=== PATIENT | female | born 1935 | race Caucasian/White ===

== ENCOUNTER 2018-02-24 13:06 | Inpatient (IN) | payer MEDICARE, OTHER ==
[~2018-02-24] VITALS: Ht 172.7 cm; Wt 68.9 kg
[~2018-02-24 13:06] MED LIST: ACID CONTROL20 MG PO; ADULT LOW DOSE81 MG PO; ALDACTONE25 MG PO; ATENOLOL 25 MG25 M1 PO; AZITHROMYCIN 2250 MG PO; BUSPIRONE HCL5 MG PO; CELEXA20 MG PO; CIPRO250 M1 PO; COLACE100 MG PO; COUMADIN 4 MG TA4 M1 PO; FLEXERIL PO; ICAPS TABLET1 EACH PO; IRON325; KEFLEX250 MG PO; KRILL OIL500 MG PO; LACTAID EXT4500 UNIT PO; LISINOPRIL20 MG PO; LUTEIN6 MG PO; MACROBID 100 M100 M2 PO; MEDROLDOSEPACK PO; METFORMIN HCL500 MG PO; NORCO 5-325 TA1 EACH PO; PROVENTIL IH; SINGULAIR 10 MG10 M1 PO; SPIRONOLACTONE25 M1 GT; VALIUM5 MG PO; VERAMYST10 GM NS; VITAMIN D1000 UNI1 PO; ZETIA10 MG
[2018-02-24 13:17] VITALS: BP 150/80
[2018-02-24] MEDS ORDERED: ICAPS TABLET1 EACH PO (13:23)
[2018-02-24] MEDS ORDERED: FISH OIL 1,001000 M2 PO (13:23)
[2018-02-24 13:33] LABS: URINE BILIRUBIN 2+ (Negative); URINE BLOOD NEGATIVE (Negative); URINE CLARITY CLEAR; URINE COLOR YELLOW; URINE GLUCOSE-RANDOM NEGATIVE (Negative); URINE KETONES TRACE (Negative); URINE LEUKOCYTES-REFLEX 1+ (Negative); URINE NITRITE-REFLEX NEGATIVE (Negative); URINE PROTEIN TRACE (Negative); URINE SPECIFIC GRAVITY 1.025 (1.005-1.030)
[2018-02-24 13:35] LABS: ICTOTEST (BILI CONFIRMATORY) Negative (Negative)
[2018-02-24 13:40] LABS: HEMATOCRIT 46.4 % (37.0-47.0); HEMOGLOBIN 15.7 gm/dL (12.0-15.0); MCH 33.8 pg (26.0-34.0); MCHC 33.9 g/dL (28.0-37.0); MCV 99.5 fL (80.0-100.0); MPV 8.4 fl. (7.2-11.1); NUCLEATED RBCS 0 /100WBC; PLATELET COUNT* 164 thou/uL (150-400); RBC 4.66 mil/uL (4.20-5.00); RDW-CV 12.7 % (10.5-14.5); WBC 10.5 thou/uL (4.0-11.0)
[2018-02-24 13:44] LABS: SQUAMOUS 0-3 Few /LPF (0-3)
[2018-02-24 13:45] LABS: BACTERIA-REFLEX None Seen /HPF (None Seen); CRYSTALS None Seen /LPF (None Seen); HYALINE CASTS 0-3 Few /LPF (None Seen); MUCUS None Seen strn/LPF (None Seen); URINE RBC 3-10 Few /HPF (0-2); URINE WBC-REFLEX 0-5 Rare /HPF (0-5)
[2018-02-24 13:51] LABS: ANION GAP 13 mmol/L (7-16); BUN 16 mg/dL (7-18); CALCIUM 9.7 mg/dL (8.5-10.1); CHLORIDE 100 mmol/L (98-107); CO2 26 mmol/L (21-32); CREATININE 1.3 mg/dL (0.6-1.3); GLUCOSE 156 mg/dL (70-99); POTASSIUM 4.6 mmol/L (3.5-5.1); SODIUM 139 mmol/L (136-145)
[2018-02-24 13:55] LABS: ALBUMIN 3.7 g/dL (3.4-5.0); ALKALINE PHOSPHATASE 65 U/L (46-116); LIPASE 316 U/L (73-393); SGOT 75 U/L (15-37); SGPT 42 U/L (30-65); TOTAL BILIRUBIN 1.7 mg/dL (<0.1-1.0); TOTAL PROTEIN 7.9 g/dL (6.4-8.2); TROPONIN-I LEVEL <0.06 ng/mL (<0.06)
[2018-02-24 14:15] LABS: ABSOLUTE LYMPHOCYTES 0.8 thou/uL (0.8-5.3); ABSOLUTE MONOCYTES 0.5 thou/uL (0.0-1.2); ABSOLUTE NEUTROPHILS 9.1 thou/uL (1.6-8.1); PLATELET ESTIMATE ADEQUATE
--- NOTE | 2018-02-24 14:33 | NUR ---
PT RETURNED FROM CAT SCAN, REQUESTING PAIN MEDICATION.
--- NOTE | 2018-02-24 15:49 | NUR ---
PT BROUGHT ICE WATER PER REQUEST. DR. FERRER CONSULTING WITH PT.
[2018-02-24 17:21] VITALS: BP 146/70
[2018-02-24 17:35] VITALS: BP 148/86
--- NOTE | 2018-02-24 18:44 | NUR ---
ASSUMED CARE OF PATIENT AFTER TRANSFER FROM ED AT 1745. ALERT AND ORIENTED X4. ADMISSION HISTORY AND ASSESSMENT COMPLETED AND CHARTED. VSS ON ROOM AIR. FLUIDS INFUSING ORDERED. PATIENT ON REGULAR DIET. NO COMPLAINTS OF NAUSEA, PAIN OR SOA AT THIS TIME. PATIENT IS UP WITH SBA AND USES WALKER. CALL LIGHT IS WITHIN REACH. NURSING WILL CONTINUE TO MONITOR.
[2018-02-24 23:42] VITALS: BP 140/80
--- NOTE | 2018-02-25 06:02 | NUR ---
ASSESSMENT COMPLETE. PT SLEPT THROUGH THE NIGHT WITHOUT ANY CONCERNS. PT DENIES PAIN AND N/V. PT IS ON ROOM AIR WITH [place]DEQA[place] SATS, VITALS STABLE. PT IS FALL RISK, BED ALARM ON. PT UP STANDBY ASSIST WITH WALKER. PT HAS SCD'S ON. IV FLUIDS INFUSING. PT GIVEN IV ABX ORDERED. PT TURNS SELF IN BED DURING THE NIGHT. SEE ASSESSMENT AND VITALS FOR OTHER DETAILS. CALL LIGHT WITHIN REACH, WILL CONTINUE PLAN OF CARE
[2018-02-25 08:30] VITALS: BP 117/65
[2018-02-25 10:59] LABS: CALCIUM 8.2 mg/dL (8.5-10.1); CREATININE 1.3 mg/dL (0.6-1.3); MAGNESIUM 1.7 mg/dL (1.8-2.4); POTASSIUM 3.7 mmol/L (3.5-5.1)
[2018-02-25 16:00] VITALS: BP 132/78
--- NOTE | 2018-02-25 16:24 | NUR ---
SPOKE WITH PT.,WHO WAS ALERT AND ORIENTED. SHE SAID SHE LIVES WITH HER . HE IS VERY SUPPORTIVE. SHE HAS MACULAR DEGENERATION AND CANNOT SEE VERY MUCH. THEY HAVE A CLEANING LADY THAT CLEANS THE UPSTAIRS OF THEIR HOME EVERY COUPLE OF WEEKS AND SHE AND CLEAN THE FAMILY ROOM DOWNSTAIRS. DRIVES. SON BOUGHT THEM A YEARS WORTH OF PRECOOKED MEALS THAT SHE JUST HAS TO PUT IN OVEN OR MICROWAVE. 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 SHE WENT TO A VISUALLY IMPAIRED PROGRAM CALLED [employer] AT ONE TIME AND THEN A LADY CAME TO THEIR HOME TO SEE WHAT SHE COULD HELP THEM WITH. HER HAS MADE A DIAGRAM THAT IS ENLARGED FOR THE WASHER/DRYER KNOBS, COLORED THE TV CHANNELS ON THE REMOTE WHITE AND MADE OTHER CHANGES THAT THE WOMAN RECOMMENDED. SHE SAID SHE COULD SEE THE NURSE BUTTON IF SHE LOOKS AT IT REAL CLOSE. SHE SAID SHE SHOULD NOT HAVE ANY DISCHARGE NEEDS. CM WILL FOLLOW.
--- NOTE | 2018-02-25 16:30 | EKG ---
[place] [address] ELECTROCARDIOGRAM REPORT Name: SHAKA FLEMING Room: [address] ADM IN M.R.#: [id number] Admission: 02/24/18 Attend Phys: Jimbo Buckner Discharge: Date of : 39 Report #: [id number] THIS REPORT FOR: //name// [facility] ED Test Date: 2018-02-24 Test Time: 13:56:35 Pat Name: SHAKA FLEMING Department: Room: [facility] Gender: F Associate Chemist: Andrés NICK : 1935 Requested By: Cee Palm Order Number: [id number] MD: Jose Daniel Eduardo Measurements Intervals [place] Rate: 91 P: 67 ID: 151 QRS: 14 QRSD: 92 T: 37 QT: 409 QTc: 504 Interpretive Statements Sinus rhythm Supraventricular bigeminy Inferior infarct, old Compared to ECG 11/25/2014 14:27:50 Atrial premature complex(es) now present Prolonged QT interval now present Sinus tachycardia no longer present Myocardial infarct finding still present Electronically Signed On 02-25-2018 16:29:57 CDT by Jose Daniel Eduardo [email or web address] <ELECTRONICALLY SIGNED> By: Jose Daniel Eduardo MD, [facility] 02/25/18 1629 1356 1356 Jose Daniel Eduardo MD, [facility] /EPI
--- NOTE | 2018-02-25 17:17 | NUR ---
ASSUMED CARE OF PATIENT AFTER MORNIGN REPORT. ALERT AND ORIENTED X4. ASSESSMENT COMPLETED AND CHARTED. VSS ON ROOM AIR. PATIENT HAD HAD NO COMPLAINTS OF NAUSEA, PAIN OR SOA THIS SHIFT. FLUIDS AND ANTIBIOTICS INFUSED ORDERED. PATIENT REMAINS ON CLEAR LIQUID DIET. RESTING COMFORTABLY IN BED AT THIS TIME. HOURLY ROUNDS MAINTAINED, CALL LIGHT IS WITHIN REACH AND NURSING WILL CONTINUE TO MONITOR.
[2018-02-25 20:00] VITALS: BP 139/61
[2018-02-26] VITALS: BP 134/62
[2018-02-26 04:00] VITALS: BP 137/60
[2018-02-26 04:30] LABS: ABSOLUTE EOSINOPHILS 0.2 thou/uL (0.0-0.7); ABSOLUTE LYMPHOCYTES 1.1 thou/uL (0.8-5.3); ABSOLUTE MONOCYTES 0.8 thou/uL (0.0-1.2); ABSOLUTE NEUTROPHILS 5.9 thou/uL (1.6-8.1); BASOPHILS 0.3 %; EOSINOPHILS 2.6 %; HEMATOCRIT 38.6 % (37.0-47.0); LYMPHOCYTES 13.6 %; MCH 33.6 pg (26.0-34.0); MCHC 33.6 g/dL (28.0-37.0); MONOCYTES 10.1 %; MPV 8.8 fl. (7.2-11.1); NUCLEATED RBCS 0 /100WBC; PLATELET COUNT* 114 thou/uL (150-400); POLYS 73.4 %; RBC 3.86 mil/uL (4.20-5.00); WBC 8.1 thou/uL (4.0-11.0)
[2018-02-26 04:43] LABS: ALBUMIN 2.4 g/dL (3.4-5.0); CREATININE 0.9 mg/dL (0.6-1.3); POTASSIUM 3.6 mmol/L (3.5-5.1); TOTAL BILIRUBIN 1.5 mg/dL (<0.1-1.0); TOTAL PROTEIN 5.8 g/dL (6.4-8.2)
--- NOTE | 2018-02-26 04:52 | NUR ---
PATIENT REMAINS ALERT AND ORIENTED X4 THROUGHOUT SHIFT. VITAL SIGNS STABLE ON ROOM AIR. TRANSFERS WITH STANDBY ASSIST WITH WALKER AND GAITBELT TO THE RESTROOM. DENIES PAIN. DENIES NAUSEA AND OR VOMITTING. IV PATENT IN THE LEFT AC INFUSING NS AT 100 ML/HR. PATIENT HAS BEEN UP FREQUENTLY THROUGHOUT THE NIGHT WITH LOOSE STOOLS. STOOL SAMPLE WAS SENT PER ORDER. PATIENT HAS BEEN RESTLESS. ISOLATION PRECAUTIONS REMAIN IN PLACE. FALL PRECAUTIONS IN PLACE. BED IN LOW POSITION, BED ALARM ON, CALL LIGHT WITHIN REACH. NURSING GHANSHYAM CONTINUE TO MONITOR.
[2018-02-26 08:12] VITALS: BP 155/75
--- NOTE | 2018-02-26 09:54 | NUR ---
ASSUMED CARES OF PT AT 0700. PT IN BED, BED IN LOW LOCKED POSITION. FALL PRECAUTIONS IN PLACE, CALL BUTTON AND PERSONAL ITEMS IN PT REACH. SPOUSE AT BEDSIDE. PT A&O X4, HRRR PER AUSCULTATION, LCTAB, VSS ON RA, OCC. HYPERTENSIVE. AFEBRILE, PERRLA, SKIN INTACT, SCATTERED SCARS AND BRUISING. PT HAS HAD MULTIPLE RUNNY, LOOSE BM'S, ON CONTACT PRECAUTIONS PENDING C-DIFF CULTURE RESULTS. PT UP SBA WITH GB/WALKER. LEFT AC IV PATENT WITH FLUIDS INFUSING, NS/100 ML/HR. PT DENIES PAIN AT THIS TIME. PT PROGRESSING TOWARDS GOAL, WILL CONTINUE TO MONITOR PT STATUS. HOURLY ROUNDING TO CONTINUE.
[2018-02-26 15:51] VITALS: BP 148/74
--- NOTE | 2018-02-26 19:31 | NUR ---
REPORT TO HORTICULTURAL TECHNICAL OFFICER FOR CONTINUED CARES. PT REMAINS STABLE WITH SPOUSE AT BEDSIDE. C-DIFF TEST RETURNED NEGATIVE, CONTACT PRECAUTIONS D/C'D. PT DENIES PAIN THIS SHIFT. UP SBA/INDEPENDENT WITH WALKER TO BATHROOM. FLUIDS INFUSING, WELL TOLERATED, NO AVR. PT PROGRESSING TOWARDS GOAL. POSSIBLE TO D/C TOMORROW TO HOME. HOURLY ROUNDS COMPLETED. VSS ON RA.
[2018-02-26 20:30] VITALS: BP 146/77
--- NOTE | 2018-02-27 06:24 | NUR ---
PT SLEPT AT INTERVALS DURING THE NIGHT, UP TO BATHROOM ABOUT EVERY HOUR TO VOID, IV FLUIDS INFUSED, USED WALKER WITH SUPERVISION, PLEASANT, CALL LIGHT IN REACH, BED ALARM ON FOR SAFETY, WILL CONTINUE TO MONITOR
[2018-02-27 08:00] VITALS: BP 109/79
[2018-02-27 14:56] LABS: HEMATOCRIT 42.3 % (37.0-47.0); HEMOGLOBIN 14.3 gm/dL (12.0-15.0); MCH 33.9 pg (26.0-34.0); MCHC 33.7 g/dL (28.0-37.0); MCV 100.4 fL (80.0-100.0); MPV 8.7 fl. (7.2-11.1); RBC 4.22 mil/uL (4.20-5.00); RDW-CV 12.9 % (10.5-14.5); WBC 7.3 thou/uL (4.0-11.0)
[2018-02-27 15:00] LABS: CALCIUM 9.5 mg/dL (8.5-10.1); CREATININE 0.9 mg/dL (0.6-1.3); MAGNESIUM 1.6 mg/dL (1.8-2.4); POTASSIUM 3.8 mmol/L (3.5-5.1)
[2018-02-27 15:35] VITALS: BP 109/79
[2018-02-27] MEDS ORDERED: PROBIOTIC1 EAC1 PO (15:45)
[2018-02-27] MEDS ORDERED: AUGMENTIN 875-1 EACH PO (15:45)
[2018-02-27] MEDS ORDERED: MIRALAX17 GM PO (15:46)
[2018-02-27] MEDS ORDERED: MAG-OXIDE400 MG PO (15:59)
[2018-02-27 16:01] VITALS: BP 117/79
--- NOTE | 2018-02-27 16:50 | NUR ---
PATIENT DISCHARGED TO HOME. DISCHARGE PAPERS REVIEWED AND SIGNED. PRESCRIPTIONS AND INFORMATION SHEETS GIVEN. IV REMOVED. PATIENT DENIES ANY FURTHER NEEDS. PATIENT TAKEN BY WHEELCAHIR TO EXIT. LEFT WITH .
--- NOTE | 2018-03-11 11:08 | CON ---
[facility] [address] [place] [address] CONSULTATION Name: SHAKA FLEMING Room: [address] IN M.R.#: [id number] Admission: 02/24/18 Attend Phys: Jimbo Buckner Discharge: 02/27/18 Date of : 39 Report #: [id number] THIS REPORT FOR: //name// CC: APRIL Fairchild DATE OF SERVICE: 02/25/2018 REFERRING PHYSICIAN: April Martins M.D. REASON FOR CONSULTATION: Abdominal pain. IMPRESSION: 1. Acute left lower quadrant pain associated with nausea, vomiting and fever, with worsening constipation and abnormal CAT scan suggested most commonly colitis - suspect ischemic colitis versus less likely diverticulitis versus less likely other causes. 2. Chronic constipation with history of ischemic colitis noted in the past (2009). 3. 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 RECOMMENDATIONS: 1. We will have the patient advance her diet to low-residue diet. 2. Continue her IV antibiotics and convert to oral antibiotics for an additional 10-14 days upon discharge. 3. We will begin the patient on MiraLax either half or full scoop with 8 ounces of water daily or every other day to prevent recurrent constipation. 4. Proceed with full colonoscopy in 6-8 weeks to make sure things are good. I believe that she will be able to go home in the next couple 3 days. My partner, Dr. Kearney, will see the patient tomorrow and make further recommendations regarding the same. Since SHE IS ALLERGIC TO LEVAQUIN, I would recommend that she go home on some Augmentin 875 twice daily and have her take a probiotic while she is on the same. Align would be a good probiotic and it could be taken at the same time. HISTORY OF PRESENT ILLNESS: The patient is a very pleasant 82-year-old white female who was seen through the Emergency Room on 02/24/2018 with complaints of rather severe abdominal pain, nausea, vomiting and diarrhea. She denied complaints of any bleeding. She has had similar-type episodes in the past where she has had bouts of ischemic colitis that have been documented by endoscopic evaluation. She has also had some low-grade fevers as well and was not sure what was going on with the same. She has not been on any antibiotics recently nor had been exposed to anybody who had been ill. [place] [address] CONSULTATION Name: SHAKA FLEMING Room: [address] IN ..#: [id number] Admission: 02/24/18 Attend Phys: Jimbo Buckner Discharge: 02/27/18 Date of : 39 Report #: [id number] towards chronic constipation, but is not taking anything on a regular basis to help with the same. She was seen through the Emergency Room and underwent a full CT scan of the abdomen and pelvis which revealed diffuse thickening of the proximal mid sigmoid colon compatible with either colitis or diverticulitis. She is admitted to the hospital for further evaluation and treatment. ALLERGIES: TIMOLOL, ESOMEPRAZOLE, GABAPENTIN, LEVOFLOXACIN, LISINOPRIL, MINOCYCLINE AND VERAPAMIL. MEDICATIONS: At home include vitamins, Aldactone and fish oil. PAST MEDICAL AND SURGICAL HISTORY: Extensive, though she is not on any medications long-term for the same. She has history of multiple surgeries, including tonsillectomy, cholecystectomy, varicose vein surgery, Bartholin cyst removal, breast biopsies and lumpectomies and hysterectomy. She has had a history of ischemic colitis, as I mentioned above. She has had carotid endarterectomy, history of macular degeneration, diverticular disease and fatty liver with cirrhosis, which confirmed by biopsies. History of essential tremor, some peripheral neuropathy as well. SOCIAL HISTORY: The patient does not smoke. Occasionally drinks alcohol. FAMILY HISTORY: Negative. PHYSICAL EXAMINATION: GENERAL: A pleasant 82-year-old white female who is awake and alert. CARDIOPULMONARY EXAMINATION: Revealed a regular rate and rhythm. LUNGS: Clear. ABDOMEN: Soft. She was tender in the left lower quadrant. No rebound or guarding noted. LABORATORY DATA: Laboratory test revealed a white count 10.5, hemoglobin 15.7, platelet count of 164,000, MCV is 99.5 and RDW 12.7. Sodium 139, potassium 4.6, chloride 100, bicarbonate is 26, BUN is 16 and creatinine 1.3. Her GFR . DICTATION ENDS HERE. <ELECTRONICALLY SIGNED> By: Lukas Baker DO 03/11/18 1108 1658 [id number] Baker DO /nt
--- NOTE | 2018-03-11 11:08 | CON ---
[address] [address] CONSULTATION Name: SHAKA FLEMING Room: [address] IN M.R.#: [id number] Admission: 02/24/18 Attend Phys: Jimbo Buckner Discharge: 02/27/18 Date of : 39 Report #: [id number] THIS REPORT FOR: //name// CC: Leidy Fairchild DATE OF SERVICE: 02/25/2018 ADDENDUM LABORATORY DATA: Her laboratory tests from 02/24/2018 revealed sodium 139, potassium 4.6, chloride 100, bicarbonate is 26, her BUN is 16, creatinine 1.3 and her GFR is 39. Her total bilirubin is 1.7, alkaline phosphatase is 65, AST 75 and ALT 42. Her albumin is 3.7. Lipase . CT scan was reviewed and was abnormal, as I mentioned above. DISCUSSION: At the present time, the patient has some colitis. I suspect it is a bout of ischemic colitis, but cannot rule out the possibility of diverticulitis or something else. Proceed with low-residue diet, antibiotics and have her come back in the office to see how things are going in several weeks. At that time, we will get her set up for a colonoscopy as an outpatient. I have made this recommendation with the patient as well as and let the patient as well as her know and they are agreeable to the same. <ELECTRONICALLY SIGNED> By: Lukas Baker, 03/11/18 1108 1706 [id number] Baker DO /nt
== END 2018-02-27 16:50 | disposition home or self-care (01) | DRG 371 ==
LOC: M.ERS 13:06 → M.TBA-ER 15:42 → M.ORTHSURG 15:42
PROVIDERS: Family Medicine; Internal Medicine Gastroenterology; Physician Assistant; ADMIT Internal Medicine
DX: A04.9 Bacterial intestinal infection, unspecified (principal); K55.039 Acute (reversible) ischemia of large intestine, extent unspecified; K51.90 Ulcerative colitis, unspecified, without complications; R65.10 Systemic inflammatory response syndrome (SIRS) of non-infectious origin without acute organ dysfunction; E44.0 Moderate protein-calorie malnutrition; K55.1 Chronic vascular disorders of intestine; J44.9 Chronic obstructive pulmonary disease, unspecified; I10 Essential (primary) hypertension; H35.30 Unspecified macular degeneration; K57.90 Diverticulosis of intestine, part unspecified, without perforation or abscess without bleeding; K59.09 Other constipation; K74.60 Unspecified cirrhosis of liver; E83.42 Hypomagnesemia; G62.9 Polyneuropathy, unspecified; Z68.23 Body mass index [BMI] 23.0-23.9, adult; Z90.49 Acquired absence of other specified parts of digestive tract; Z87.891 Personal history of nicotine dependence; Z90.710 Acquired absence of both cervix and uterus; Z79.899 Other long term (current) drug therapy; Z88.1 Allergy status to other antibiotic agents; Z88.8 Allergy status to other drugs, medicaments and biological substances

== ENCOUNTER 2019-04-15 08:54 | Emergency (ER) | payer MEDICARE, OTHER ==
[~2019-04-15] VITALS: Ht 172.7 cm; Wt 63.5 kg
[~2019-04-15 08:54] MED LIST changes: +ALDACTONE100 MG PO; -ALDACTONE25 MG PO; +AUGMENTIN 875-1 EACH PO; +FISH OIL 1,001000 M2 PO; +MAG-OXIDE400 MG PO; +MIRALAX17 GM PO; +PROBIOTIC1 EAC1 PO
[2019-04-15] MEDS ORDERED: SYNTHROID25 MC1 PO (09:08)
[2019-04-15] MEDS ORDERED: NORCO 7.5-3251 EACH PO (10:01)
[2019-04-15] MEDS ORDERED: IBUPROFEN 800800 MG PO (10:01)
[2019-04-15] MEDS ORDERED: PERCOCET 5-3251 EACH PO (10:04)
[2019-04-15] MEDS ORDERED: NORCO 5-325 TA1 EAC1 PO (10:05)
[2019-04-15 10:20] VITALS: BP 130/85
== END 2019-04-15 10:20 | disposition home or self-care (01) ==
LOC: M.ERS 08:54
DX: S00.03XA Contusion of scalp, initial encounter (principal); S10.93XA Contusion of unspecified part of neck, initial encounter; M79.18 Myalgia, other site; H35.30 Unspecified macular degeneration; K76.0 Fatty (change of) liver, not elsewhere classified; I10 Essential (primary) hypertension; Z88.8 Allergy status to other drugs, medicaments and biological substances; Z88.1 Allergy status to other antibiotic agents; Z90.89 Acquired absence of other organs; Z90.49 Acquired absence of other specified parts of digestive tract; Z90.710 Acquired absence of both cervix and uterus; W18.39XA Other fall on same level, initial encounter; Y92.89 Other specified places as the place of occurrence of the external cause; Y93.89 Activity, other specified; Y99.8 Other external cause status

== ENCOUNTER → 2019-06-14 | Outpatient (CLI) | payer MEDICARE, OTHER ==
[~2019-06-14] MED LIST changes: +IBUPROFEN 800800 MG PO; +NORCO 5-325 TA1 EAC1 PO; +NORCO 7.5-3251 EACH PO; +PERCOCET 5-3251 EACH PO; +SYNTHROID25 MC1 PO
[2019-06-14 12:17] LABS: ALBUMIN 3.5 g/dL (3.4-5.0); CALCIUM 9.4 mg/dL (8.5-10.1); CREATININE 1.2 mg/dL (0.6-1.3); TOTAL BILIRUBIN 0.9 mg/dL (<0.1-1.0); TOTAL PROTEIN 7.7 g/dL (6.4-8.2)
[2019-06-14 21:05] LABS: COMPLEMENT-C4 27 mg/dL (14-44)
[2019-06-15 02:07] LABS: GLYCOHEMOGLOBIN (HGB A1C) 5.7 % (4.8-5.6)
[2019-06-15 07:08] LABS: HEPATITIS B SURFACE AG Negative (Negative)
[2019-06-16 12:09] LABS: URINE CREATININE (GM/24H) 520 mg/24 hr (800-1800)
[2019-06-16 16:06] LABS: GLOBULIN TOTAL 3.6 g/dL (2.2-3.9); M-SPIKE Not Observed g/dL (Not Observed)
[2019-06-16 18:08] LABS: URINE PROTEIN < 80 mg/24 hr (30-150); URINE PROTEIN (MG/DL) < 4.0 mg/dL (Not Estab.)
[2019-06-18 14:10] LABS: CREATININE CLEARANCE 29 mL/min (88-128)
== END ==
LOC: M.ULTRA 10:30 → M.LAB 10:40 → M.ULTRA 10:40
PROVIDERS: Nurse Practitioner Family
DX: N28.1 Cyst of kidney, acquired (principal)

== ENCOUNTER 2020-10-21 20:46 | Inpatient (IN) | payer MEDICARE, OTHER ==
[~2020-10-21] VITALS: Ht 172.7 cm; Wt 69.4 kg
[2020-10-21 21:00] VITALS: BP 166/84
[2020-10-21] MEDS ORDERED: SPIRONOLACTONE50 MG PO (21:22)
[2020-10-21] MEDS ORDERED: LEVO-T25 MCG PO (21:22)
[2020-10-21 21:27] LABS: ABSOLUTE LYMPHOCYTES 0.4 thou/uL (0.8-5.3); ABSOLUTE MONOCYTES 0.9 thou/uL (0.0-1.2); ABSOLUTE NEUTROPHILS 4.1 thou/uL (1.6-8.1); BASOPHILS 0.5 %; HEMATOCRIT 45.6 % (37.0-47.0); HEMOGLOBIN 15.5 gm/dL (12.0-15.0); LYMPHOCYTES 7.8 %; MCH 33.4 pg (26.0-34.0); MCHC 34.1 g/dL (28.0-37.0); MONOCYTES 16.1 %; MPV 7.9 fl. (7.2-11.1); NUCLEATED RBCS 0 /100WBC; PLATELET COUNT* 135 thou/uL (150-400); POLYS 75.6 %; RBC 4.66 mil/uL (4.20-5.00); RDW-CV 13.1 % (10.5-14.5); WBC 5.5 thou/uL (4.0-11.0)
[2020-10-21 21:38] LABS: CALCIUM 8.8 mg/dL (8.5-10.1); CREATININE 1.3 mg/dL (0.6-1.3); POTASSIUM 3.8 mmol/L (3.5-5.1)
[2020-10-21 21:49] LABS: ALBUMIN 3.3 g/dL (3.4-5.0); MAGNESIUM 1.7 mg/dL (1.8-2.4); TOTAL BILIRUBIN 0.7 mg/dL (<0.1-1.0); TOTAL PROTEIN 7.6 g/dL (6.4-8.2)
[2020-10-21 22:53] LABS: URINE BILIRUBIN NEGATIVE (Negative); URINE BLOOD NEGATIVE (Negative); URINE CLARITY CLEAR; URINE COLOR YELLOW; URINE GLUCOSE-RANDOM NEGATIVE (Negative); URINE KETONES NEGATIVE (Negative); URINE LEUKOCYTES-REFLEX TRACE (Negative); URINE NITRITE-REFLEX NEGATIVE (Negative); URINE PROTEIN NEGATIVE (Negative); URINE UROBILINOGEN 0.2 E.U./dl (0.2-1.0)
[2020-10-21 22:54] LABS: INFLUENZA A ANTIGEN Negative (Negative); INFLUENZA B ANTIGEN Negative (Negative)
[2020-10-21 23:02] LABS: SQUAMOUS 4-10 Moderate /LPF (0-3)
[2020-10-21 23:03] LABS: BACTERIA-REFLEX 1-9 Few /HPF (None Seen); CASTS None Seen /LPF (None Seen); CRYSTALS None Seen /LPF (None Seen); URINE RBC None Seen /HPF (0-2); URINE WBC-REFLEX 6-15 Few /HPF (0-5)
[2020-10-21 23:54] VITALS: BP 163/72
[2020-10-22 00:15] VITALS: BP 162/85
--- NOTE | 2020-10-22 00:15 | NUR ---
PT ADMITTED TO FLOOR PER CART ACCOMPANIED BY ER STAFF WITH BELONGINGS. ORIENTED TO ROOM AND CALL LITE. HISTORY OBTAINED AND ASSESSMENT PERFORMED. PT CURRENTLY NAUSEATED AND ACHED IN RIBS AND BACK FROM COUGHING SHE STATES. AOX4. SHAKEY WHEN TRANSFERRING FROM BED TO [facility] DIZZINESS. INSTRUCTED IN FALL PRECAUTIONS, BED ALARM ON FOR SAFETY. PT VERBALIZES UNDERSTANDING. WILL GIVE MEDS ORDERED. IVF PLACED ON PUMP FOR INFUSION. TELE SR.
[2020-10-22 00:39] LABS: INR 1.1; PROTIME 10.7 Seconds (9.20-11.50)
[2020-10-22 04:45] VITALS: BP 122/63
--- NOTE | 2020-10-22 05:17 | NUR ---
NEW ADMISSION THIS SHIFT. ZOFRAN GIVEN AND PT MADE COMFORTABLE IN BED AND ABLE TO REST SOME. DEXAMETHASONE GIVEN ORDERED. LAC IVF INFUSING PER PUMP. UP WITH ASSIST TO BSC TO VOID, SHAKEY. BED ALARM ON FOR SAFETY, CALL LITE IN EASY REACH. ABLE TO USE CALL LITE AND MAKE NEEDS KNOWN.REMAINS ON ENHANCED PRECATION ISOLATION ON COVID UNIT.
[2020-10-22 08:30] VITALS: BP 97/54
--- NOTE | 2020-10-22 10:26 | EKG ---
[place] [address] ELECTROCARDIOGRAM REPORT Name: SHAKA FLEMING Room: [address] IN [facility]#: [id number] Admission: 10/21/20 Attend Phys: Mary Astorga, Discharge: 10/24/20 Date of : 39 Date of Service: 10/21/202102 Report #: [id number] THIS REPORT FOR: //name// [facility] ED Test Date: 2020-10-21 Test Time: 21:03:56 Pat Name: SHAKA CORDOVA Department: Room: 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: [facility] : 1935 Requested By: Anjana Casillas Order Number: [id number] MD: Kamaljit Jaimes Measurements Intervals [place] Rate: 81 P: 23 [place]: 136 QRS: 3 QRSD: 88 T: 49 QT: 368 QTc: 428 Interpretive Statements Sinus rhythm Minimal ST elevation, inferior leads No previous ECG available for comparison Electronically Signed On 10-22-2020 10:26:25 MATERIAL YARD CLERK by Kamaljit Jaimes [email or web address] <ELECTRONICALLY SIGNED> By: Kamaljit Jaimes MD, FACC 10/22/20 1026 02 02 Kamaljit Jaimes MD, [facility] /EPI
[2020-10-22 10:36] LABS: HEMATOCRIT 42.3 % (37.0-47.0); HEMOGLOBIN 14.3 gm/dL (12.0-15.0); MCH 33.1 pg (26.0-34.0); MCHC 33.9 g/dL (28.0-37.0); MCV 97.7 fL (80.0-100.0); NUCLEATED RBCS 0 /100WBC; PLATELET COUNT* 127 thou/uL (150-400); RBC 4.33 mil/uL (4.20-5.00); RDW-CV 12.8 % (10.5-14.5); WBC 3.2 thou/uL (4.0-11.0)
[2020-10-22 10:53] LABS: ALBUMIN 2.6 g/dL (3.4-5.0); CALCIUM 8.2 mg/dL (8.5-10.1); CREATININE 1.1 mg/dL (0.6-1.3); POTASSIUM 3.6 mmol/L (3.5-5.1); TOTAL BILIRUBIN 0.4 mg/dL (<0.1-1.0); TOTAL PROTEIN 6.5 g/dL (6.4-8.2)
[2020-10-22 11:20] LABS: ABSOLUTE LYMPHOCYTES 0.2 thou/uL (0.8-5.3); ABSOLUTE MONOCYTES 0.1 thou/uL (0.0-1.2); ABSOLUTE NEUTROPHILS 2.9 thou/uL (1.6-8.1); PLATELET ESTIMATE DECREASED
[2020-10-22 12:04] VITALS: BP 95/54
--- NOTE | 2020-10-22 16:45 | NUR ---
SPOKE WITH SON THOMAS ABOUT MOTHERS CONDITION, ANSWERED QUESTIONS AND CONCERNS.
--- NOTE | 2020-10-22 16:50 | NUR ---
SPOKE WITH SON,THOMAS, ON [phone]. HE SAID HIS MOM LIVES IN A INDEPENDENT APT[place]AT THE [facility]. SHE HAS MACULAR DEGENERATION BUT MANAGES OK. SHE TAKES HER OWN MEDS,MICROWAVES FOOD,CAN WALK TO THE DINING ROOM IF IT IS OPEN WITH HER WALKER,OTHERWISE THEY DELIVER MEALS TO HER. NO OTHER DME AND NO HX OF HH OR SNF. THEY MAY BE INTERESTED IN HOME HEALTH AT DISCHARGE.WILL FOLLOW.
--- NOTE | 2020-10-22 18:06 | NUR ---
PT LYING IN BED MOST OF THE DAY, AO X4 ON ROOM AIR. SHE IS VERY WEAK AND IS ASSIST X1 TO BSC. SHE HAS VOIDED A COUPLE TIMES AND IS EATING SMALL MEALS WITH NO NAUSE/VOMITING. PT IS GETTING FLUIDS PER ORDER AND TAKING ADEQUATE PO FLUID INTAKE. I SPOKE WITH HER SON IN REGARDS TO HER CONDITION AND CARE PLAN.
[2020-10-22 20:58] VITALS: BP 109/60
[2020-10-23 00:07] VITALS: BP 103/47
[2020-10-23 04:55] VITALS: BP 107/48
--- NOTE | 2020-10-23 06:59 | NUR ---
PATIENT WAS UP MOST OF THE NIGHT. PATIENT REMAINS ON ROOM AIR BUT STILL COMPLAINING OF SHORTNESS OF BREATHE. WILL CONTINUE TO MONITOR.
[2020-10-23 07:34] LABS: HEMATOCRIT 38.5 % (37.0-47.0); HEMOGLOBIN 13.1 gm/dL (12.0-15.0); MCH 32.8 pg (26.0-34.0); MCV 96.4 fL (80.0-100.0); MPV 8.3 fl. (7.2-11.1); NUCLEATED RBCS 0 /100WBC; PLATELET COUNT* 158 thou/uL (150-400); RBC 3.99 mil/uL (4.20-5.00); RDW-CV 12.8 % (10.5-14.5)
[2020-10-23 07:36] LABS: WBC 12.3 thou/uL (4.0-11.0)
[2020-10-23 07:42] LABS: CALCIUM 8.1 mg/dL (8.5-10.1); POTASSIUM 3.1 mmol/L (3.5-5.1)
[2020-10-23 08:28] LABS: ABSOLUTE LYMPHOCYTES 0.5 thou/uL (0.8-5.3); ABSOLUTE NEUTROPHILS 9.8 thou/uL (1.6-8.1); ANISOCYTOSIS 1+; PLATELET ESTIMATE ADEQUATE; POIKILOCYTOSIS 1+; POLYCHROMASIA Occasional
[2020-10-23 10:00] VITALS: BP 110/47
--- NOTE | 2020-10-23 14:37 | NUR ---
PT.MAY BE READY FOR DISCHARGE TOMORROW,BACK TO THE [facility]. PT/OT ORDERED FOR TODAY. HER SON WOULD LIKE FOR HER TO HAVE HOME HEALTH AT DISCHARGE. HE WOULD LIKE [facility]. [facility] REFERRAL TO [phone].
[2020-10-23 16:00] VITALS: BP 116/56
--- NOTE | 2020-10-23 17:03 | NUR ---
[facility] CALLED AND SAID THEY COULD ACCEPT PT.MEDICALLY BUT COULD NOT SEE HER UNTIL NEXT THURSDAY, OCT.29. TOLD HIM I WOULD NEED TO FIND A DIFFERENT HH CO. THAT WOULD BE TOO LONG TO WAIT. HE UNDERSTOOD. WILL DISCUSS WITH SON IN AM.
[2020-10-23 21:27] VITALS: BP 114/63
[2020-10-24 04:00] VITALS: BP 125/66
[2020-10-24 08:00] VITALS: BP 143/68
[2020-10-24 08:05] LABS: ABSOLUTE LYMPHOCYTES 0.3 thou/uL (0.8-5.3); ABSOLUTE MONOCYTES 0.9 thou/uL (0.0-1.2); ABSOLUTE NEUTROPHILS 13.1 thou/uL (1.6-8.1); BASOPHILS 0.1 %; HEMATOCRIT 40.7 % (37.0-47.0); HEMOGLOBIN 13.6 gm/dL (12.0-15.0); LYMPHOCYTES 2.1 %; MCH 32.5 pg (26.0-34.0); MCHC 33.4 g/dL (28.0-37.0); MCV 97.2 fL (80.0-100.0); MONOCYTES 6.3 %; MPV 8.4 fl. (7.2-11.1); NUCLEATED RBCS 0 /100WBC; PLATELET COUNT* 192 thou/uL (150-400); POLYS 91.5 %; RBC 4.18 mil/uL (4.20-5.00); WBC 14.3 thou/uL (4.0-11.0)
[2020-10-24 08:26] LABS: ALBUMIN 2.4 g/dL (3.4-5.0); CALCIUM 8.4 mg/dL (8.5-10.1); CREATININE 0.9 mg/dL (0.6-1.3); POTASSIUM 3.7 mmol/L (3.5-5.1); TOTAL BILIRUBIN 0.3 mg/dL (<0.1-1.0); TOTAL PROTEIN 6.3 g/dL (6.4-8.2)
[2020-10-24] MEDS ORDERED: VIBRAMYCIN 100100 M2 PO (08:38)
[2020-10-24] MEDS ORDERED: PROTONIX40 M2 PO (08:41)
[2020-10-24] MEDS ORDERED: DEXAMETHASONE1 MG PO (08:41)
[2020-10-24 12:00] VITALS: BP 125/71
[2020-10-24 14:37] VITALS: BP 125/71
[2020-10-24 14:52] VITALS: BP 125/71
--- NOTE | 2020-10-24 16:20 | NUR ---
SPOKE WITH [facility]. SHE SAID TO FAX OVER INFORMATION AND ORDERS TO THEM AND THEY WILL CALL IF THEY CAN ACCEPT PT. FAXED TO [phone]. [facility] CALLED BACK AND SAID THEY CAN ACCEPT PT.AND WILL START THIS WEEKEND DUE TO THE HOLIDAY.
--- NOTE | 2020-10-24 16:40 | NUR ---
PATIENT DISCHARGED TO HOME WITH HOME HEALTH. DISCHARGE PAPERS REVIEWED AND SIGNED. PRESCRIPTIONS TRANSMITTED TO PHARMACY AND INFORMATION SHEETS GIVEN. IV REMOVED. PATIENT ASSISTED WITH PACKING BELONGINGS AND GETTING DRESSED. PATIENT DENIES ANY FURTHER NEEDS. PATIENT TAKEN BY WHEELCHAIR TO EXIT. LEFT WITH SON.
[2020-10-24 16:44] VITALS: BP 125/71
== END 2020-10-24 16:40 | disposition home health service (06) | DRG 177 ==
LOC: M.ERS 20:46 → M.ORTHSURG 23:18 → M.TBA-ER 23:18 → M.ORTHSURG 23:18
PROVIDERS: Emergency Medicine; Internal Medicine; ADMIT Internal Medicine; ATTEND Internal Medicine
DX: U07.1 COVID-19 (principal); J12.89 Other viral pneumonia; R65.10 Systemic inflammatory response syndrome (SIRS) of non-infectious origin without acute organ dysfunction; E87.1 Hypo-osmolality and hyponatremia; N39.0 Urinary tract infection, site not specified; E03.9 Hypothyroidism, unspecified; I10 Essential (primary) hypertension; Z79.899 Other long term (current) drug therapy; Z90.49 Acquired absence of other specified parts of digestive tract; Z72.89 Other problems related to lifestyle

== ENCOUNTER 2021-04-25 11:08 | Inpatient (IN) | payer MEDICARE, OTHER ==
[2021-04-25] VITALS (39 sets, daily range): BP systolic 115–154; BP diastolic 55–111
[~2021-04-25] VITALS: Ht 172.7 cm; Wt 69.4 kg
--- NOTE | ~2021-04-25 | D ---
[address] [address] DISCHARGE SUMMARY Name: SHAKA FLEMING Christie Room: [address] IN ..#: [id number] Admission: 04/25/21 Attend Phys: Tj Forde MD Discharge: Date of : 39 Report #: [id number] THIS REPORT FOR: cc: Sam Hart MD, Bruce D. MD Liston, Michael J. MD [facility] ~ DOC #: [id number] cc: MD Tj Abreu MD DATE OF DISCHARGE: 04/27/2021 DISCHARGE DIAGNOSES: 1. Acute anterior ST elevation myocardial infarction. 2. Hypertension. 3. Dyslipidemia. 4. Acute on chronic combined heart failure. PROCEDURES DURING HOSPITALIZATION: 1. Coronary angiography. 2. Left heart catheterization. 3. Left ventriculography. 4. ICU monitoring. 5. Percutaneous coronary intervention to the mid left anterior descending coronary artery with a drug-eluting stent placement. HOSPITAL COURSE: The patient was admitted through the Emergency Room emergently on 04/25/2021, with acute anterolateral ST elevation myocardial infarction. On catheterization, she was found to have a 100% vessel occlusion in the mid left anterior descending coronary artery with associated thrombus and calcification. The patient underwent emergent percutaneous coronary intervention with drug-eluting stent placement with minimal 10% residual stenosis at completion of the procedure. The patient tolerated the procedure well and without complication. Left ventricular end diastolic pressure at the time of procedure was 25 mmHg. Left ventriculography showed an EF of approximately 35% with distal anterior wall and apical akinesis. The patient was recovered in the Intensive Care Unit uneventfully. The patient's medications were adjusted for heart failure and acute myocardial infarction with percutaneous coronary intervention. The patient was gradually increased in her activities which she did well with. The patient is being discharged uneventfully. DISCHARGE MEDICATIONS: Will include Effient 10 mg p.o. daily, atorvastatin 40 mg at bedtime, metoprolol succinate 50 mg p.o. daily, Cozaar 25 mg p.o. daily, aspirin 81 mg p.o. daily, spironolactone 50 mg p.o. daily, levothyroxine 25 [place] [address] DISCHARGE SUMMARY Name: SHAKA FLEMING Room: [address]#: [id number] Admission: 04/25/21 Attend Phys: Tj Forde MD Discharge: Date of : 39 Report #: [id number]. DISPOSITION: The patient is to follow up with Cardiology in 1 week. Tj Forde MD MJL/ESTRELLITA/MELISSAT By: [address] [facility] Hospitalchristie Forde MD, FACC /nt
[~2021-04-25 11:08] MED LIST changes: +DEXAMETHASONE1 MG PO; +LEVO-T25 MCG PO; +PROTONIX40 M2 PO; +SPIRONOLACTONE50 MG PO; +VIBRAMYCIN 100100 M2 PO
--- NOTE | 2021-04-25 11:30 | NUR ---
TO COFFERDAM CONSTRUCTION SUPERVISOR WITH CATH TEAM. 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
--- NOTE | 2021-04-25 11:33 | NUR ---
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 FAVIOLA VOICES UNDERSTANDING OF THIS.
[2021-04-25 11:34] LABS: ABSOLUTE BASOPHILS 0.1 thou/uL (0.0-0.2); ABSOLUTE EOSINOPHILS 0.1 thou/uL (0.0-0.7); ABSOLUTE LYMPHOCYTES 2.3 thou/uL (0.8-5.3); ABSOLUTE MONOCYTES 1.2 thou/uL (0.0-1.2); ABSOLUTE NEUTROPHILS 7.2 thou/uL (1.6-8.1); BASOPHILS 0.8 %; EOSINOPHILS 1.2 %; HEMATOCRIT 44.2 % (37.0-47.0); LYMPHOCYTES 20.8 %; MCH 30.2 pg (26.0-34.0); MCHC 33.9 g/dL (28.0-37.0); MCV 89.1 fL (80.0-100.0); MPV 7.8 fl. (7.2-11.1); NUCLEATED RBCS 0 /100WBC; PLATELET COUNT* 227 thou/uL (150-400); POLYS 66.2 %; RBC 4.96 mil/uL (4.20-5.00); WBC 10.8 thou/uL (4.0-11.0)
[2021-04-25 11:43] LABS: CALCIUM 9.5 mg/dL (8.5-10.1); CREATININE 1.2 mg/dL (0.6-1.3); POTASSIUM 4.3 mmol/L (3.5-5.1)
[2021-04-25 11:47] LABS: APTT 22.3 Seconds (25.0-31.3); PROTIME 10.6 Seconds (9.20-11.50)
[2021-04-25 11:54] LABS: ALBUMIN 3.5 g/dL (3.4-5.0); MAGNESIUM 1.8 mg/dL (1.8-2.4); TOTAL BILIRUBIN 0.9 mg/dL (<0.1-1.0); TOTAL PROTEIN 7.5 g/dL (6.4-8.2)
[2021-04-25 13:02] LABS: CHOLESTEROL 230 mg/dL (<200); HDL CHOLESTEROL 70 mg/dL (>40); LDL CHOLESTEROL 124 mg/dL (<100); TC:HDL 3.3 Ratio (Not establshd); TRIGLYCERIDE 184 mg/dL (<150); VLDL 37 mg/dL (<40)
[2021-04-25 13:03] LABS: SERUM ASSESSMENT Clear
--- NOTE | 2021-04-25 13:59 | CARD ---
[address] [address] CARDIAC CATH REPORT Name: NICKOIVELISSEGRETTASHAKA L Room: [address] IN [facility]#: [id number] Admission: 04/25/21 Attend Phys: Tj Forde MD Discharge: Date of : 39 Report #: [id number] THIS REPORT FOR: cc: Sam Hart MD, Bruce D. MD Holkins, John M. MD [facility] ~ APPROVED REPORT Study performed: 04/25/2021 11:25:50 Patient Details Patient Status: ED Room #: The patient is a 85 year-old female Event Personnel Elle Cid RTR ScrubSean Jillian RN RN, Jose Daniel Eduardo Clinical Biostatistics Director, Duane Mix RTR Monitor, Tj Forde Longwall Machine Operator Helper Procedures Performed Left Heart Cath w/or w/o Coronaries [id number] [facility] Revasc AMI Total/Sub Single LAD C9606 AMIREVSING Hemostasis w/ Angioseal Indication STEMI (>0 to less than or equal to 6 hours) Risk Factors Hypercholesterolemia, Hypertension Admission/Lab Medications/Medications given during procedure Lidocaine Subcut 20 ml, Angiomax IV 10.5 ml, Angiomax IV 24.32 ml per hr, Effient PO 60 mg Procedure Narrative The patient was brought emergently to the Cardiac Catheterization Laboratory and was prepped and draped in a sterile manner. The right femoral was infiltrated with 2% Lidocaine subcutaneous anesthesia. A [place] 6 FR sheath was inserted into the right femoral artery. Coronary angiography was performed using coronary diagnostic catheters. The right coronary system was accessed and visualized with a Diagnostic JR4 6Fr catheter. The left coronary system was accessed and visualized with a Diagnostic JL4 6Fr catheter[place] [address] CARDIAC CATH REPORT Name: SHAKA FLEMING Room: [address]#: [id number] Admission: 04/25/21 Attend Phys: Tj Forde MD Discharge: Date of : 39 Report #: [id number] was accessed and visualized with a Diagnostic Pigtail 6Fr catheter. Left ventricular/Aortic Valve gradient assessed via catheter pullback. Left ventriculogram was performed in CUBAN projection. Pre-demployment femoral angiogram was performed . Closure device was deployed with a 6 Fr Angioseal. The patient tolerated the procedure well and there were no complications associated with the procedure. There was no hematoma. Intraoperative Conscious Sedation Sedation start time: 1137 Case end Time: 1231 Fluoro Time: 17.1 minutes Dose: DAP 251360 cGycm2 1782.53 mGy Contrast Type and Amount: Visipaque 290 ml Diagnostic Cath Left Main 0% narrowing LAD 40% proximal narrowing with 100% mid vessel occlusion and prominent local thrombus at the site with MARY ANN 0 flow to the distal LAD Circumflex 40% tubular proximal narrowing Right Coronary Moderate size dominant vessel with 50% proximal mid and distal narrowings Left Ventriculography The left ventricle is normal in size with Decreased contractility. The left ventricular ejection fraction is estimated to be 35%. Left ventricular wall motion abnormalities are present. There is no mitral insufficiency. Apical akinesis is noted Hemodynamics The aortic pressure is 135/59 mmHg with a mean of 81 mmHg. The left ventricular pressure is 123/9 mmHg with a mean of mmHg. The left ventricular end diastolic pressure is 25 mmHg. PCI Technique Lesion Anticoagulation was achieved with Angiomax. 10.5 mL Percutaneous coronary intervention was performed on the mid left anterior descending artery segment. The lesion stenosis prior to intervention was 100% with MARY ANN 0 flow. A 6FR XB 3.5 100CM Guide Catheter was used to engage the Left ostium. A BMW 190cm Interventional Guidewire was used to cross the lesion. BALLOON DILATION A Balloon catheter Trek RX 2.5 X 12 was [place] [address] CARDIAC CATH REPORT Name: SHAKA FLEMING Room: [address] IN [facility]#: [id number] Admission: 04/25/21 Attend Phys: Tj Forde MD Discharge: Date of : 39 Report #: [id number] 8.00atm for 8seconds. Additional Inflation: 14.00atm for 8seconds. Additional Inflation: 17.00atm for 12seconds. A Balloon catheter RX Mini Trek 1.5X8 was inserted and inflated up to 17.00 andrew for 12 seconds. Additional Inflation: 20.00 andrew for 8 seconds. A balloon Catheter RX Trek 2.0X8 was inserted and inflated up to 17.00 andrew for 10 seconds, Additional Inflation: 18.00 andrew for 8 seconds STENT DEPLOYMENT A drug-eluting stent Maitland RX Stent 2.63B30sc was inserted and inflated up to 14.00atm for 10seconds. Additional Inflation: 15.00atm for 8seconds. A drug-eluting stent Jarred RX Stent 2.75X 8mm was inserted and inflated up to 12.00 andrew for 9 seconds. Additional Inflation: 12.00 andrew for 6 seconds. Additional Inflation: 15.00 andrew for 9 seconds. Final angiography reveals 0 % stenosis with MARY ANN 3 flow. Conclusion 1. Acute anterolateral STEMI 2. Significant coronary artery disease characterized by the following: A 40% proximal with 100% mid LAD occlusion with MARY ANN 0 flow to the distal vessel B 40% tubular proximal circumflex narrowing C dominant right coronary with 50% proximal mid and distal narrowings 3. Moderately severe elevation of left ventricular end-diastolic pressure at rest 4. Moderate impairment in global LV function, estimated ejection fraction being 35% with apical akinesis 5. Successful PCI with deployment of sequential drug-eluting stents at the site of 100% mid LAD occlusion with 0% residual narrowing, no residual thrombus, and MARY ANN-3 flow to the distal vessel Recommendations Cardiac Risk Reduction Program [place] [address] CARDIAC CATH REPORT Name: SHAKA FLEMING Room: [address] IN M..#: [id number] Admission: 04/25/21 Attend Phys: Tj Forde MD Discharge: Date of : 39 Report #: [id number] Medications Administered Aspirin (any) Clopidogrel Diagnostic Cath Approved by: Tj Forde MD Date/Time: 04/25/2021 13:56:20 <ELECTRONICALLY SIGNED> By: Jose Daniel Eduardo MD, FACC 04/25/21 1359 1359 1359Jose Daniel Eduardo MD, FACC /INF
--- NOTE | 2021-04-25 14:42 | EKG ---
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 Hand: REAGAN : 1935 Requested By: Cordell Hansen Order Number: [id number] MD: Jose Daniel Eduardo Measurements Intervals [place] Rate: 87 P: 39 NM: 181 QRS: -68 QRSD: 85 T: 69 QT: 402 QTc: 484 Interpretive Statements Sinus arrhythmia Probable left atrial enlargement Inferior infarct, old Probable anterior infarct, indeterminate age Lateral leads are also involved Compared to ECG 10/21/2020 21:03:56 Myocardial infarct finding now present Sinus arrhythmia is noted Electronically Signed On 04-25-2021 14:42:37 CDT by Jose Daniel Eduardo [email or web address] <ELECTRONICALLY SIGNED> By: Jose Daniel Eduardo MD, [facility] 04/25/21 1442 1343 134 Jose Daniel Eduardo MD, [facility] /EPI
--- NOTE | 2021-04-25 16:46 | EKG ---
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 : 1935 Requested By: Tj Forde Order Number: [id number] Reading MD: Tj Forde Measurements Intervals [place] Rate: 83 P: 69 MO: 158 QRS: 45 QRSD: 82 T: 51 QT: 405 QTc: 476 Interpretive Statements Sinus arrhythmia Probable left atrial enlargement Inferior infarct, old Anterior infarct, acute (LAD) Lateral leads are also involved Compared to ECG 10/21/2020 21:03:56 Myocardial infarct finding now present Sinus rhythm no longer present ST (T wave) deviation no longer present Electronically Signed On 04-25-2021 16:46:42 CDT by Tj Forde [email or web address] <ELECTRONICALLY SIGNED> By: Tj Forde MD, [facility] 04/25/21 1646 111 Tj Forde MD, [facility] /EPI
--- NOTE | 2021-04-25 19:32 | NUR ---
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
--- NOTE | 2021-04-25 22:40 | NUR ---
PT REPORTS SORENESS IN NECK RELATED TO FALL EARLY TODAY AT HOME. SPOKE WITH DR LOVE AND RECIEVED ORDERS. ASKED DR LOVE IF HEAD BLEED WAS A CONSIDERATION, DR LOVE REPLIED, NO.
[2021-04-26] VITALS (25 sets, daily range): BP systolic 98–134; BP diastolic 51–73
[2021-04-26 04:15] LABS: HEMATOCRIT 41.7 % (37.0-47.0); HEMOGLOBIN 14.1 gm/dL (12.0-15.0); MCH 30.3 pg (26.0-34.0); MCHC 33.8 g/dL (28.0-37.0); MCV 89.5 fL (80.0-100.0); MPV 7.8 fl. (7.2-11.1); RBC 4.66 mil/uL (4.20-5.00); RDW-CV 15.9 % (10.5-14.5); WBC 11.7 thou/uL (4.0-11.0)
[2021-04-26 04:49] LABS: CALCIUM 9.8 mg/dL (8.5-10.1); CREATININE 1.2 mg/dL (0.6-1.3); POTASSIUM 4.5 mmol/L (3.5-5.1); TOTAL BILIRUBIN 1.5 mg/dL (<0.1-1.0); TOTAL PROTEIN 6.8 g/dL (6.4-8.2)
[2021-04-26 05:07] LABS: TROPONIN-I LEVEL 16.12 ng/mL (<0.06)
--- NOTE | 2021-04-26 09:16 | H ---
[place] [address] HISTORY AND PHYSICAL Name: SHAKA FLEMING Room: [address] ADM IN [facility]#: [id number] Admission: 04/25/21 Attend Phys: Tj Forde MD Discharge: Date of : 39 Report #: [id number] THIS REPORT FOR: cc: Sam Hart MD, Bruce D. MD Liston, Michael J. MD [facility] ~ DOC #: [id number] cc: MD Tj Abreu MD DATE OF SERVICE: 04/25/2021 CARDIOLOGY ADMISSION HISTORY AND PHYSICAL ADMITTING DIAGNOSIS: Acute ST elevation myocardial infarction. HISTORY OF PRESENT ILLNESS: The patient is an 85-year-old white female with prior history of abdominal aortic aneurysm stenting. She denies any prior history of coronary artery disease or myocardial infarction. She developed midsternal chest discomfort at 9:00 this morning. She ultimately called the ambulance when the pain was not resolving. EKG here in the emergency room shows acute anterolateral ST elevation myocardial infarction. The patient continues to have mid sternal discomfort. She denies pain prior to today. PAST MEDICAL HISTORY: 1. Abdominal aortic stenting. 2. Right leg vein stripping. 3. Lumpectomy. 4. Cholecystectomy. 5. Hypertension. 6. Hypothyroidism. ALLERGIES: ATENOLOL, PROLIA, NEXIUM, GABAPENTIN, LEVOFLOXACIN, LISINOPRIL, MINOCYCLINE, VERAPAMIL. HOME MEDICATIONS: Spironolactone 50 mg daily, levothyroxine 1 tablet 25 mcg daily, [place] 5/325 q.4 hours p.r.n., fish oil 1000 mg daily. SOCIAL HISTORY: The patient reports occasional alcohol use. She does not smoke. FAMILY HISTORY: Noncontributory. REVIEW OF SYSTEMS: A 14-point review of systems as per HPI, [place] [address] HISTORY AND PHYSICAL Name: SHAKA FLEMING Room: [address]#: [id number] Admission: 04/25/21 Attend Phys: Tj Forde MD Discharge: Date of : 39 Report #: [id number] PHYSICAL EXAMINATION: VITAL SIGNS: Blood pressure 129/64, pulse 86 and regular. GENERAL: This is an elderly female, appears to be in moderate distress with chest discomfort. HEENT: Head is normocephalic, atraumatic. Extraocular muscles intact. Mucous membranes are moist. NECK: Shows no jugular venous distention. There are no carotid bruits. CHEST: Reveals clear lung crowell. HEART: Reveals a regular rhythm with normal S1, S2. I do not appreciate gallop or murmur. ABDOMEN: Reveals normal bowel sounds. Soft, nontender. EXTREMITIES: Shows no edema. SKIN: Warm and dry. IMAGING STUDIES: A 12-lead EKG shows acute anterolateral ST segment elevation. LABORATORY DATA: Pending at the time of this dictation. ASSESSMENT AND PLAN: 1. Acute anterolateral ST elevation myocardial infarction. We will proceed to cardiac catheterization lab for emergent coronary angiography and intervention. 2. Hypertension, presently stable. We will reevaluate medication after intervention. 3. Possible dyslipidemia. We will check a fasting lipid profile. Tj Forde MD MJL/PRINCEI <ELECTRONICALLY SIGNED> By: Tj Forde MD, [facility] 04/26/21 0916 1032 1110[facility] Centerchristie Forde MD, FACC /nt
--- NOTE | 2021-04-26 10:00 | NUR ---
Patient currently being wheeled up to tele unit. Called patient's son Krishan. Introduced role of CM. Patient currently lives at [facility]. Patient uses a walker occasionally for long distances. No stairs leading to or in apt. Patient was independent with ADLs prior to admission. Hx of HH (unknown name) and SNF/rehab at [facility]. No hx of dialysis, infusion therapy or BHS services. No home O2. Krishan is DPOA. PCP is Sam Hart (). Possible plan for discharge tomorrow. No CM needs anticipated. CM to remain available if needed.
--- NOTE | 2021-04-26 11:01 | EKG ---
[place] [address] ELECTROCARDIOGRAM REPORT Name: SHAKA FLEMING Room: [address] IN .R.#: [id number] Admission: 04/25/21 Attend Phys: Tj Forde, Discharge: Date of : 39 Date of Service: 04/26/21 0758 Report #: [id number] THIS REPORT FOR: //name// [facility] Test Date: 2021-04-26 Test Time: 07:58:11 Pat Name: SHAKA FLEMING Department: Room: [facility] Gender: F Ccie: : 1935 Requested By: Tj Forde Order Number: [id number] Reading MD: Jose Daniel Eduardo Measurements Intervals [place] Rate: 76 P: -16 MI: 141 QRS: -63 QRSD: 82 T: 57 QT: 465 QTc: 523 Interpretive Statements Sinus rhythm Inferior infarct, old Recent anterolateral myocardial infarction Prolonged QT interval Compared to ECG 04/25/2021 13:43:44 Prolonged QT interval now present Sinus arrhythmia no longer present Myocardial infarct finding still present Electronically Signed On 04-26-2021 11:01:36 CDT by Jose Daniel Eduardo [email or web address] <ELECTRONICALLY SIGNED> By: Jose Daniel Eduardo MD, [facility] 04/26/21 1101 0758 0758 Jose Daniel Eduardo MD, [facility] /EPI
--- NOTE | 2021-04-26 14:58 | NUR ---
PT REQUESTED TO WALK IN ROOM WITH ASSIST. WENT IN TO WALK PT BUT SHE IS SLEEPING AT THIS TIME. WILL TRY AGAIN LATER.
--- NOTE | 2021-04-26 15:18 | NUR ---
A&OX 4, PWD. PT ATE APPROX. 50% OF LUNCH. FEELS BETTER BREE O2 AT 2L NC WHEN LYING IN BED. DID GET UP AND WALKED SEVERAL LAPS IN ROOM WITH NURSE. NO C/O PAIN. SAT UP IN CHAIR FOR LUNCH AND TOLERATED WELL. VISITED WITH FAMILY THIS AM AND AND AGAIN THIS AFTERNOON HAD MORE VISITORS. BED ALARM ON FOR SAFETY. SL RIGHT HAND INTACT AND PATENT. WILL CONTINUE TO MONITOR.
[2021-04-26] MEDS ORDERED: LIPITOR 40 MG T40 M1 PO (16:57)
[2021-04-26] MEDS ORDERED: METOPROLOL SUCC25 M1 PO (16:57)
[2021-04-26] MEDS ORDERED: EFFIENT10 MG PO (16:57)
[2021-04-26] MEDS ORDERED: COZAAR 50 MG TA50 M1 PO (16:57)
[2021-04-26] MEDS ORDERED: SYNTHROID25 MC1 PO (16:57)
[2021-04-26] MEDS ORDERED: BAYER CHEWABLE81 MG PO (16:57)
[2021-04-26] MEDS ORDERED: ALDACTONE100 MG PO (16:57)
--- NOTE | 2021-04-26 22:07 | NUR ---
ASSUMED CARE OF PT. FROM [place]LA AROUND 1730. PT. AOX4, VSS, DENIES PAIN OR DISCOMFORT, R GROIN CATH SITE INTACT, RETAIL PHARMAC[facility], NO HEMATOMA OR DRAINAGE NOTES. CALL LIGHT AND PERSONAL BELONGINGS PLACED WITHIN REACH. AGREE WITH ASSESSMENT AND SCREENING DOCUMENTED ON THIS PATIENT THIS SHIFT. PT. AMBULATES IN ROOM, STANDBY ASSIST. PT. IN ROOM, RESTING WITH EYES CLOSED AT THIS TIME.
[2021-04-27] VITALS: BP 101/71
[2021-04-27 04:00] VITALS: BP 110/64
[2021-04-27 08:00] VITALS: BP 111/61
--- NOTE | 2021-04-27 09:04 | NUR ---
PATIENT HAS SLEPT WELL THROUGHOUT MOST OF THE NIGHT. VSS ON RA. MEDICATIONS GIVEN ORDERED AND CHARTED. ASSESSMENT CHARTED. NO C/O CHEST PAIN. IV IN RIGHT HAND-SL. PATIENT SR ON GENERAL COUNSEL. WILL CONTINUE WITH PLAN OF CARE AND NURSING TO MONITOR.
[2021-04-27 12:00] VITALS: BP 85/38
[2021-04-27 15:31] VITALS: BP 85/38
--- NOTE | 2021-04-27 16:07 | NUR ---
RECEIVED REPORT. ASSUMED CARE OF PT AROUND 0730. AM ASSESSMENT AND VITALS COMPLETED CHARTED. MEDS PER EMAR. DISCHARGE ORDERS GIVEN BY CARDIOLOGY. PT REFUSED CARDIAC REHAB. IV AND IS CONSULTANT REMOVED. ALL BELONGINGS GATHERED AND SENT OUT WITH PT. PT AWARE TO HYGIENE COORDINATOR SCRIPTS FROM HER PHARMACY AND IS AWARE OF FOLLOW UP APPOINTMENTS. PT LEFT UNIT IN WC WITH NURSING STAFF. PT LEFT HOSPITAL IN CAR WITH FAMILY.
== END 2021-04-27 16:10 | disposition home or self-care (01) | DRG 246 ==
LOC: M.ERS 11:08 → M.TBA-CV 11:32 → M.CL 11:32 → M.ICU 12:49 → M.TBA-ER 12:49 → M.ICU 12:52 → M.2W 04-26 09:50
PROVIDERS: Emergency Medicine Emergency Medical Services; Registered Nurse; ADMIT Internal Medicine Cardiovascular Disease; ATTEND Internal Medicine Cardiovascular Disease
PROC: B211YZZ Fluoroscopy of Multiple Coronary Arteries using Other Contrast (ICD-10-PCS; principal; 2021-04-25)
PROC: 4A023N7 Measurement of Cardiac Sampling and Pressure, Left Heart, Percutaneous Approach (ICD-10-PCS; principal; 2021-04-25)
PROC: 027035Z Dilation of Coronary Artery, One Artery with Two Drug-eluting Intraluminal Devices, Percutaneous Approach (ICD-10-PCS; principal; 2021-04-25)
PROC: B215YZZ Fluoroscopy of Left Heart using Other Contrast (ICD-10-PCS; principal; 2021-04-25)
DX: I21.09 ST elevation (STEMI) myocardial infarction involving other coronary artery of anterior wall (principal); I50.43 Acute on chronic combined systolic (congestive) and diastolic (congestive) heart failure; I25.10 Atherosclerotic heart disease of native coronary artery without angina pectoris; E78.5 Hyperlipidemia, unspecified; I11.0 Hypertensive heart disease with heart failure; E03.9 Hypothyroidism, unspecified; Z79.899 Other long term (current) drug therapy; Z90.49 Acquired absence of other specified parts of digestive tract; Z88.1 Allergy status to other antibiotic agents; Z88.8 Allergy status to other drugs, medicaments and biological substances

== ENCOUNTER → 2021-05-13 | Outpatient (CLI) | payer MEDICARE, OTHER ==
[~2021-05-13] MED LIST changes: +BAYER CHEWABLE81 MG PO; +COZAAR 50 MG TA50 M1 PO; +EFFIENT10 MG PO; +LIPITOR 40 MG T40 M1 PO; +METOPROLOL SUCC25 M1 PO
== END ==
LOC: M.CT 13:23
PROVIDERS: ATTEND Nurse Practitioner Family
DX: J84.10 Pulmonary fibrosis, unspecified (principal); I77.810 Thoracic aortic ectasia; J43.9 Emphysema, unspecified; R93.89 Abnormal findings on diagnostic imaging of other specified body structures

== ENCOUNTER → 2021-07-24 | Outpatient (CLI) | payer MEDICARE, OTHER ==
[2021-07-24 11:00] LABS: ALBUMIN 3.8 g/dL (3.4-5.0); ALKALINE PHOSPHATASE 119 U/L (46-116); CHOLESTEROL 145 mg/dL (<200); DIRECT BILIRUBIN 0.3 mg/dL (<0.1-0.3); HDL CHOLESTEROL 68 mg/dL (>40); LDL CHOLESTEROL 61 mg/dL (<100); SGOT 37 U/L (15-37); SGPT 29 U/L (30-65); TC:HDL 2.1 Ratio (Not establshd); TOTAL BILIRUBIN 0.7 mg/dL (<0.1-1.0); TOTAL PROTEIN 7.6 g/dL (6.4-8.2); TRIGLYCERIDE 83 mg/dL (<150); VLDL 17 mg/dL (<40)
[2021-07-24 11:02] LABS: SERUM ASSESSMENT Clear
--- NOTE | 2021-07-24 15:00 | 2DMMODE ---
[place] [address] 2 D/M-MODE ECHOCARDIOGRAM Name: SHAKA FLEMING Room: [facility]#: [id number] Admission: 07/24/21 Attend Phys: Blaire Hoang, Discharge: Date of : 39 Date of Service: 07/24/21 1459 Report #: [id number] THIS REPORT FOR: cc: Idalia Salinas Sarah Anne FNP Holkins, John M. MD [facility] ~ APPROVED REPORT Study performed: 07/24/2021 10:46:15 EXAM: Comprehensive 2D, Doppler, and color-flow Echocardiogram Patient Location: Out-Patient BSA: 1.76 HR: 86 bpm BP: 118/68 mmHg Other Information Study Quality: Good Indications Cardiomyopathy 2D Dimensions IVSd: 8.27 (7-11mm) LVOT Diam: 20.64 (18-24mm) LVDd: 36.39 mm PWd: 7.87 (7-11mm) Ascending Ao: 35.08 (22-36mm) LVDs: 23.19 (25-40mm) Aortic Root: 42.99 mm Volumes Left Atrial Volume (Systole) LA ESV Index: 17.80 mL/m2 Aortic Valve AoV Peak Brian.: 1.15 m/s AO Peak Gr.: 5.28 mmHg LVOT Max P.66 mmHg AO Mean Gr.: 2.52 mmHg LVOT Mean P.77 mmHg LVOT Max V: 0.96 m/s AO V2 VTI: 20.83 cm LVOT Mean V: 0.62 m/s ADRIANE (VTI): 3.54 cm2 LVOT V1 VTI: 22.03 cm Mitral Valve E/A Ratio: 0.84 [place] [address] 2 D/M-MODE ECHOCARDIOGRAM Name: SHAKA FLEMING Room: [facility]#: [id number] Admission: 07/24/21 Attend Phys: Blaire Hoang, Discharge: Date of : 39 Date of Service: 07/24/21 1459 Report #: [id number] MV Decel. Time: 256.92 ms MV E Max Brian.: 0.89 m/s MV PHT: 74.51 ms MVA (PHT): 2.95 cm2 TDI E/Lateral E': 11.13 E/Medial E': 9.89 Medial E' Brian.: 0.09 m/s Lateral E' Brian.: 0.08 m/s Pulmonary Valve PV Peak Brian.: 0.59 m/s PV Peak Gr.: 1.41 mmHg Tricuspid Valve RAP Estimate: 5.00 mmHg TR Peak Gr.: 26.18 mmHg RVSP: 31.18 mmHg PA Pressure: 31.18 mmHg Left Ventricle The left ventricle is normal size. There is normal LV segmental wall motion. There is normal left ventricular wall thickness. Left ventricular systolic function is normal. The left ventricular ejection fraction is within the normal range. LVEF is 60-65%. Grade I - abnormal relaxation pattern. Right Ventricle The right ventricle is normal size. The right ventricular systolic function is normal. Atria The left atrium size is normal. The right atrium size is normal. Aortic Valve Mild aortic valve sclerosis. Trace aortic regurgitation. There is no aortic valvular stenosis. Mitral Valve Mild mitral annular calcification. Mild mitral regurgitation. No evidence of mitral valve stenosis. Tricuspid Valve The tricuspid valve is normal in structure. Mild tricuspid regurgitation. [place] [address] 2 D/M-MODE ECHOCARDIOGRAM Name: SHAKA FLEMING Room: [facility]#: [id number] Admission: 07/24/21 Attend Phys: Blaire Hoang, Discharge: Date of : 39 Date of Service: 07/24/21 1459 Report #: [id number] The pulmonary valve is normal in structure. There is no pulmonic valvular regurgitation. Great Vessels The aortic root is normal in size. IVC is normal in size and collapses >50% with inspiration. Pericardium There is no pericardial effusion. <Conclusion> The left ventricle is normal size. There is normal left ventricular wall thickness. Left ventricular systolic function is normal. The left ventricular ejection fraction is within the normal range. LVEF is 60-65%. Grade I - abnormal relaxation pattern. The right ventricle is normal size. The left atrium size is normal. Mild aortic valve sclerosis. Trace aortic regurgitation. There is no aortic valvular stenosis. Mild mitral annular calcification. Mild mitral regurgitation. No evidence of mitral valve stenosis. The tricuspid valve is normal in structure. Mild tricuspid regurgitation. IVC is normal in size and collapses >50% with inspiration. There is no pericardial effusion. There is normal LV segmental wall motion. <ELECTRONICALLY SIGNED> By: Jose Daniel Eduardo MD, FACC 07/24/21 1459 1459 1459 Jose Daniel Eduardo MD, FACC /INF
== END ==
LOC: M.CRD 10:04 → M.LAB 10:04 → M.CRD 11:00
PROVIDERS: ATTEND Nurse Practitioner
DX: I08.3 Combined rheumatic disorders of mitral, aortic and tricuspid valves (principal); I25.5 Ischemic cardiomyopathy; E78.5 Hyperlipidemia, unspecified

== ENCOUNTER → 2021-10-30 | Outpatient (CLI) | payer MEDICARE, OTHER ==
[2021-10-30 08:31] LABS: CREATININE 1.1 mg/dL (0.6-1.3)
== END ==
LOC: M.LAB 07:56
PROVIDERS: ATTEND Nurse Practitioner Family
DX: S00.83XA Contusion of other part of head, initial encounter (principal); H35.63 Retinal hemorrhage, bilateral; N28.9 Disorder of kidney and ureter, unspecified; G31.89 Other specified degenerative diseases of nervous system; I67.82 Cerebral ischemia